=== PATIENT | female | born 1935 | race Caucasian/White ===

== ENCOUNTER → 2017-01-29 | Outpatient (CLI) | payer OTHER ==
[~2017-01-29] MED LIST: ASA81BEC PO; CALCIUM 500 +1 EAC5 PO; CENTRUM SILVER1 EAC4 PO; CLARITIN10 MG PO; FISH OIL + VIT1 EACH PO; HYDROCHLOROTH12.5 M1 PO; HYDROCHLOROTHIA25 M2 PO; HYDROCODON-ACE1 EAC7 PO; LEVOTHYROXIN0.112 M1 PO; LISINOPRIL40 MG PO; LISINOPRIL5 MG PO; NORVASC10 MG PO; NORVASC5 MG PO; PACERONE 200 M200 M1 PO; PRAVACHOL40 MG PO; PRAVACHOL80 MG PO; STOOL SOFTENER100 M1 PO; XALATAN2.5 ML OP; ZETIA10 MG PO
== END ==
LOC: RAD 04:28
DX: Z12.31 Encounter for screening mammogram for malignant neoplasm of breast (principal)

== ENCOUNTER → 2017-02-25 | Outpatient (CLI) | payer OTHER ==
[~2017-02-25] VITALS: Ht 172.7 cm; Wt 88.9 kg
[~2017-02-25] MED LIST changes: +OMEGA-31000 M1 PO; +SYMBICORT160 MCG/4. INH; +TIMOLOL MA0.25 %/52 OPHTHALMIC
--- NOTE | ~2017-02-25 | P ---
[facility] [place] [address] PROCEDURE REPORT Name: CAMILLE VIERA Room #: [id number] Admission: 02/25/17 Attend Phys: Jw Wilkinson MD Discharge: Date of : 34 Report #: [id number] THIS REPORT FOR: //name// CC: Jw Darden BRIEF HISTORY: The patient is an 81-year-old woman with a lifetime colon polyp of greater than 26. She also had a polyp removed surgically. ____. PREOPERATIVE DIAGNOSIS: High risk screening colonoscopy due to multiple colon adenomas. POSTOPERATIVE DIAGNOSIS: Moderate sigmoid diverticulosis coli. MEDICATIONS: Deep sedation with propofol per anesthesia. SPECIMEN: None. ESTIMATED BLOOD LOSS: None. PROCEDURE: Colonoscopy to ileocolonic anastomosis and terminal ileum. FINDINGS: Prior to propofol sedation, procedure of colonoscopy was reviewed with the patient as well as potential risks and its complications. She indicates she understands and desires to proceed. DESCRIPTION OF PROCEDURE: With the patient in left lateral decubitus position, digital examination was completed which revealed no abnormalities. Subsequently, the [employer] video colonoscope was introduced into the rectum, advanced under direct vision to the ileocolonic anastomosis. This was done with minimal difficulty. The ileocolonic anastomosis was unremarkable and widely patent. The scope was advanced across the ileocolonic anastomosis and the distal segment of the terminal ileum was within normal limits. At that point, the scope was slowly withdrawn and careful circumferential views were obtained. Upon slow withdrawal of the scope, the prep was noted to be good with a small amount of seed material remaining scattered about the colon. These were easily washed away. The mucosa was within normal limits, normal vascular pattern, normal light reflex. On today's exam, I did not find any polyps in the colon, the mucosa was normal. She was noted to have moderately severe diverticular disease without endoscopic evidence of diverticulitis. Scope was withdrawn in the rectum, no abnormalities were seen. Upon retroflexion, no abnormalities were noted. Scope was withdrawn. The patient tolerated the procedure well. CONDITION OF THE PATIENT UPON DISCHARGE: Following procedure, the patient [facility] [address] [place] [address] PROCEDURE REPORT Name: CAMILLE VIERA Room #: REG [facility].#: [id number] Admission: 02/25/17 Attend Phys: Jw Wilkinson MD Discharge: Date of : 34 Report #: [id number] drowsy, aroused, conversant and will be discharged home when fully ambulatory. INSTRUCTIONS TO THE PATIENT AND FAMILY AT THE TIME OF DISCHARGE: No neoplastic lesions were seen. 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 Since the biology of polyps could be accelerated in these conditions, as along as she has good healthy and remains active, I think it would be reasonable to continue with high risk screening colonoscopy. We will discuss with the patient. If her health is good in 2 years, would certainly consider a surveillance colonoscopy at that time. She will otherwise follow up with Dr. Aneesh Darden. <ELECTRONICALLY SIGNED> By: Jw Wilkinson MD 02/26/17 1715 [id number] Jw Wilkinson MD /nt
== END | disposition home or self-care (01) ==
LOC: GI 06:38
DX: Z09 Encounter for follow-up examination after completed treatment for conditions other than malignant neoplasm (principal); K57.30 Diverticulosis of large intestine without perforation or abscess without bleeding; K21.9 Gastro-esophageal reflux disease without esophagitis; I10 Essential (primary) hypertension; J43.9 Emphysema, unspecified; E78.5 Hyperlipidemia, unspecified; H40.9 Unspecified glaucoma; E03.9 Hypothyroidism, unspecified; Z98.0 Intestinal bypass and anastomosis status; Z90.49 Acquired absence of other specified parts of digestive tract; Z87.891 Personal history of nicotine dependence; Z85.51 Personal history of malignant neoplasm of bladder; Z85.828 Personal history of other malignant neoplasm of skin; Z98.890 Other specified postprocedural states; Z90.710 Acquired absence of both cervix and uterus; Z88.2 Allergy status to sulfonamides; Z79.82 Long term (current) use of aspirin; Z79.899 Other long term (current) drug therapy; Z88.7 Allergy status to serum and vaccine
CPT/HCPCS: 62110; 62900

== ENCOUNTER → 2019-03-10 | Outpatient (CLI) | payer OTHER ==
[~2019-03-10] VITALS: Ht 172.7 cm; Wt 83.9 kg
[~2019-03-10] MED LIST changes: +CALCIUM CARBONATE PO; +FLUTICASONE-SA1 EAC1; +MULTI VITAMIN1 EACH PO
--- NOTE | ~2019-03-10 | P ---
[facility] [place] [address] PROCEDURE REPORT Name: AYLINCAMILLE Jose Room #: REG [facility]#: [id number] Admission: 03/10/19 ������������������ Attend Phys: Jw Wilkinson MD Discharge: ������������������ Date of : 34 Report #: [id number] THIS REPORT FOR: //name// CC: Jw Darden DATE OF SERVICE: 03/10/2019 BRIEF HISTORY: The patient is an 83-year-old woman with a lifetime history of 26 adenomas for high risk screening. PREOPERATIVE DIAGNOSIS: High risk screening colonoscopy. POSTOPERATIVE DIAGNOSES: 1. Multiple colon polyps. 2. Moderate sigmoid diverticulosis coli. MEDICATIONS: Deep sedation with propofol per anesthesia. SPECIMENS: 1. Polyp of the ileocolonic anastomosis. 2. Polyp at 60 cm. 3. Polyps x 2 at 50 cm. ESTIMATED BLOOD LOSS: 3 mL. PROCEDURE: Colonoscopy to ileocolonic anastomosis and terminal ileum with snare polypectomy and biopsy. FINDINGS: Prior to propofol sedation, procedure of colonoscopy discussed with the patient as well as potential risks and its complications. She indicates she understands and desires to proceed. DESCRIPTION OF PROCEDURE: With the patient in left lateral decubitus position, digital examination was completed, which revealed no abnormalities. Subsequently, the Olymp[employer] video colonoscope was introduced in the rectum, advanced under direct vision to the ileocolonic anastomosis. This was identified by the surgical anastomosis, which was well healed in a villous pattern of the distal ileum. At that point, the scope was slowly withdrawn and careful circumferential views were obtained. Overall, the prep was good. However, an occasional piece of vegetable material was encountered in the colon, which could not be removed with the scope. We irrigated and tried to mobilize these pieces of vegetable material as well as possible. Overall, reasonably good looks were obtained of the colonic mucosa. The mucosa was within normal limits, normal vascular pattern, normal light reflex. Just distal to the [facility] [address] [place] [address] PROCEDURE REPORT Name: CAMILLE VIERA Room #: REG [facility]#: [id number] Admission: 03/10/19 ������������������ Attend Phys: Jw Wilkinson MD Discharge: ������������������ Date of : 34 Report #: [id number] ileocolonic anastomosis was a 5 mm sessile polyp, which was seen and removed by cold snare polypectomy and recovered. The scope was further withdrawn and at 60 cm, another 5 mm polyp was seen and removed by cold snare polypectomy and recovered. At 50 cm, 2 diminutive polyps were seen and removed with biopsy forceps. The scope was further withdrawn and no additional abnormalities were noted until the sigmoid colon was reached at which point moderate to severe diverticular disease identified without endoscopic evidence of diverticulitis. The scope was further withdrawn and no additional abnormalities were seen. Examination of the rectum revealed normal mucosa. Upon retroflexion, no additional abnormalities were seen. Scope was withdrawn. The patient tolerated the procedure well. CONDITION OF THE PATIENT UPON DISCHARGE: Following procedure, the patient drowsy, arousable and will be discharged home when fully ambulatory. INSTRUCTIONS TO THE PATIENT AND FAMILY AT THE TIME OF DISCHARGE: Total 4 polyps were identified and removed today. We will follow up on the path and make further recommendations as needed. The patient is currently 83 years old. Prior to this examination, her lifetime adenoma count was 26. Issues whether we continued high risk screening in this patient is 83, would we consider repeat colonoscopy in 2 years at age 85. We will discuss further with the patient. At this time, she is healthy and able to do most of the things she would like to do. She still drives a car. Going forward, if her health is good and she has longevity of at least 5-7 years, repeat colonoscopy might be reasonable. ��������������������������������������������� ���������������������������������������� By: ��������������������������������������������� 1001 0007 Jw Wilkinson MD /nt
--- NOTE | 2019-03-13 14:06 | PATH ---
[facility] [address] [place] [address] PATHOLOGY RPT PROCEDURE Name: MARGOT VIERA Jose Room #: REG [facility].#: [id number] ������������������ Admission: 03/10/19 ������������������ Date of : 33 Discharge: Report #: [id number] Path Case #: [id number] [facility] Accession Number: [id number] . 01 Material submitted: . PART A: colon - POLYP AT ILEOCOLONIC ANASTOMOSIS PART B: colon - POLYP AT 60CM PART C: colon - POLYP AT 50CM X2 . 01 Clinical history: . Colon polyps, diverticulosis. . 02 Diagnosis: A. Polyp, at ileocecal anastomosis, endoscopic biopsy: - Hyperplastic changes as well as reactive mucosal changes. - Negative for dysplasia or malignancy. . B. Polyp, at 60 cm, endoscopic biopsy: - Tubular adenoma. - Negative for high-grade dysplasia. . C. Polyp x2, at 50 cm, endoscopic biopsy: - One fragment showing tubular adenoma; negative for high-grade dysplasia. - One fragment showing hyperplastic polyp; negative for dysplasia. . (IUV:cathryn; 03/13/2019) [facility]BR 03/13/2019 1203 Local . 02 Electronically signed: . Penny Baumann MD, Pathologist NPI- [id number] . 01 Gross description: . A. Received in formalin labeled "Margot Viera, polyp at ileocolonic anastomosis" is a 0.4 x 0.3 x 0.1 cm fragment of parr-brown mucosa. The specimen is submitted in A1. . B. Received in formalin labeled "Rocky, Margot, polyp at 60 cm" is a 0.9 x 0.8 x 0.2 cm aggregate of parr-brown mucosa fragments. The specimen is submitted in B1. . C. Received in formalin labeled "Rocky, Margot, polyp at 50 cm x2" is a 0.5 x 0.5 x 0.1 cm aggregate of parr-brown mucosa fragments. The specimen is submitted in C1. [place]11[place] [facility] 03/11/2019 1537 Local . 02 Pathologist provided ICD-10: [address] [address] PATHOLOGY RPT PROCEDURE Name: MARGOT VIERA Room #: REG [facility] Niko#: [id number] ������������������ Admission: 03/10/19 ������������������ Date of : 34 Discharge: Report #: [id number] Path Case #: [id number] D12.6, K63.5 . 02 CPT . [id number], [id number] Specimen Comment: A courtesy copy of this report has been sent to Specimen Comment: [phone], . Specimen Comment: Report sent to / DR CHENG Performed at: [address] [facility], [place] [id number] MD Anthony Woo MD Phone: [phone] Performed at: [address] [id number] MD Penny Baumann MD Phone: [phone]
== END | disposition home or self-care (01) ==
LOC: GI 07:12
DX: Z12.11 Encounter for screening for malignant neoplasm of colon (principal); Z86.010 Personal history of colon polyps; D12.4 Benign neoplasm of descending colon; D12.5 Benign neoplasm of sigmoid colon; K57.30 Diverticulosis of large intestine without perforation or abscess without bleeding; K63.5 Polyp of colon; K21.9 Gastro-esophageal reflux disease without esophagitis; I10 Essential (primary) hypertension; E03.9 Hypothyroidism, unspecified; E78.5 Hyperlipidemia, unspecified; J43.9 Emphysema, unspecified; H40.9 Unspecified glaucoma; Z87.891 Personal history of nicotine dependence; Z98.0 Intestinal bypass and anastomosis status; Z85.828 Personal history of other malignant neoplasm of skin; Z87.19 Personal history of other diseases of the digestive system; Z90.710 Acquired absence of both cervix and uterus; Z90.49 Acquired absence of other specified parts of digestive tract; Z98.890 Other specified postprocedural states; Z88.2 Allergy status to sulfonamides; Z88.8 Allergy status to other drugs, medicaments and biological substances; Z79.899 Other long term (current) drug therapy; Z79.891 Long term (current) use of opiate analgesic
CPT/HCPCS: 62110; 62900

== ENCOUNTER → 2019-03-16 | Outpatient (CLI) | payer OTHER | LOC: RAD 10:43 | DX: Z12.31 Encounter for screening mammogram for malignant neoplasm of breast (principal) ==

== ENCOUNTER → 2019-12-25 | Outpatient (CLI) | payer OTHER | LOC: SJCVCIMAG 09:46 → SJCVC 10:28 | PROVIDERS: ATTEND Internal Medicine Cardiovascular Disease | DX: I73.9 Peripheral vascular disease, unspecified (principal); M79.606 Pain in leg, unspecified; I10 Essential (primary) hypertension; M54.5 Low back pain; G89.29 Other chronic pain; E78.00 Pure hypercholesterolemia, unspecified; Z79.899 Other long term (current) drug therapy; Z87.891 Personal history of nicotine dependence ==

== ENCOUNTER → 2020-09-24 | Outpatient (CLI) | payer OTHER | LOC: SJCVCIMAG 08:52 | PROVIDERS: ATTEND Nuclear Medicine Nuclear Cardiology | DX: I65.23 Occlusion and stenosis of bilateral carotid arteries (principal); I70.203 Unspecified atherosclerosis of native arteries of extremities, bilateral legs; I10 Essential (primary) hypertension; E78.00 Pure hypercholesterolemia, unspecified; I77.9 Disorder of arteries and arterioles, unspecified; Z87.891 Personal history of nicotine dependence; Z88.2 Allergy status to sulfonamides; Z79.899 Other long term (current) drug therapy ==

== ENCOUNTER → 2020-11-26 | Outpatient (CLI) | payer OTHER | LOC: RAD 09:52 | PROVIDERS: ATTEND Family Medicine | DX: Z12.31 Encounter for screening mammogram for malignant neoplasm of breast (principal) ==